=== PATIENT | male | born 1960 | race Caucasian/White ===

== ENCOUNTER → 2017-12-17 | Outpatient (CLI) | payer OTHER ==
--- NOTE | ~2017-12-17 | HM ---
[place], [place] HOLTER MONITOR REPORT NAME: HELDER ROUSE UNIT #: [id number] ROOM: DOCTOR: IVAN MA MD BIRTHDATE: [birth year] DOS: 12/18/2017 FINDINGS: The patient remained in sinus rhythm throughout the entire period. Minimum heart rate 51, maximum heart rate 118, average heart rate 74. As mentioned, the patient is in sinus rhythm throughout the entire period. No significant bradycardic or tachycardic episodes. No significant PVCs or PACs are present. No significant pauses. FINAL IMPRESSION: Grossly normal Holter monitor without any evidence of significant cardiac dysrhythmia. IVAN MA MD CM:HOLTER:HOLTER MONITOR REPORT [id number] IVAN MA MD
== END | disposition home or self-care (01) ==
LOC: CARD 09:07
DX: R00.1 Bradycardia, unspecified (principal)

== ENCOUNTER → 2018-03-04 | Outpatient (CLI) | payer OTHER | END | disposition home or self-care (01) | LOC: MRI 08:16 | DX: R41.3 Other amnesia (principal); Z87.828 Personal history of other (healed) physical injury and trauma ==

== ENCOUNTER 2019-12-13 08:32 | Emergency (ER) | payer OTHER ==
[~2019-12-13] VITALS: Ht 182.8 cm; Wt 124.7 kg
[2019-12-13 08:39] VITALS: BP 165/96
[2019-12-13] MEDS ORDERED: Motrin,Rufen800 MG PO (11:10)
== END 2019-12-13 11:28 | disposition home or self-care (01) ==
LOC: ED 08:32
DX: S49.92XA Unspecified injury of left shoulder and upper arm, initial encounter (principal); M54.2 Cervicalgia; W11.XXXA Fall on and from ladder, initial encounter; Y93.89 Activity, other specified; Y92.89 Other specified places as the place of occurrence of the external cause; Y99.0 Civilian activity done for income or pay

== ENCOUNTER → 2020-03-28 | Outpatient (CLI) | payer BC ==
[~2020-03-28] MED LIST: Motrin,Rufen800 MG PO
[2020-03-28 10:23] LABS: BASO # 0.1 10*3/uL (0.0-0.1); BASO % 1.2 % (0.0-1.0); EOS # 0.3 10*3/uL (0.0-0.4); EOS % 4.8 % (1.0-4.0); HEMATOCRIT 43.1 % (42.0-52.0); LYMPH # 2.4 10*3/uL (1.3-4.4); LYMPH % 34.4 % (27.0-41.0); MEAN CELL VOLUME 93.1 fl (80.0-94.0); MEAN CORPUSCULAR HGB CONC 32.3 g/dl (33.0-37.0); MEAN PLATELET VOLUME 10.2 fl (9.6-12.3); MONO # 0.6 10*3/uL (0.1-1.0); MONO % 8.7 % (3.0-9.0); NEUT # 3.5 10*3/uL (2.3-7.9); NEUT % 50.6 % (47.0-73.0); PLATELET COUNT AUTOMATED 231 10*3/uL (130-400); RED BLOOD COUNT 4.63 10*6/uL (4.50-5.90); RED CELL DISTRI WIDTH 13.2 % (0-14.5); RETICULOCYTE % 1.35 % (0.50-2.50); WHITE BLOOD COUNT 6.9 10*3/uL (4.8-10.8)
[2020-03-28 10:26] LABS: BILIRUBIN Negative (Negative); BLOOD Negative (Negative); CLARITY Clear (Clear); COLOR Yellow (Yellow); GLUCOSE Negative (Negative); KETONE Negative (Negative); LEUKO ESTERASE Trace (Negative); NITRITE Negative (Negative); SPECIFIC GRAVITY 1.015 (1.001-1.030); UROBILINOGEN 0.2 E.U./dl (0.0-1.0)
[2020-03-28 10:56] LABS: ALBUMIN 3.7 gm/dl (3.1-4.5); ALKALINE PHOSPHATASE 97 U/L (45-117); BUN 12 mg/dl (7-24); CHLORIDE 109 mmol/L (98-107); CHOLESTEROL 201 mg/dL (<200); CPK 134 U/L (39-308); CREATININE 0.99 mg/dL (0.70-1.30); GAMMA GLUTAMYL TRANSPEPTIDASE 67 U/L (15-85); HDL CHOLESTEROL 53 mg/dl (40-60); IRON 83 ug/dL (65-175); LDL CHOLESTEROL 110 mg/dL (9-159); POTASSIUM 4.2 mmol/L (3.5-5.1); SGOT/AST 23 IU/L (3-35); SGPT/ALT 37 U/L (12-78); SODIUM 142 mmol/L (136-145); THYROXINE (T4) TOTAL 7.6 ug/dl (4.5-12.1); TOTAL IRON BINDING CAPACITY 296 ug/dl (250-450); TOTAL PROTEIN 7.4 gm/dL (6.4-8.2); TRIGLYCERIDES 189 mg/dl (<150); VLDL CHOLESTEROL 38 mg/dL (6-40)
[2020-03-28 11:03] LABS: T3 UPTAKE 33 % (31-39)
[2020-03-28 11:03] LABS: BACTERIA TRACE
[2020-03-28 11:40] LABS: FERRITIN 167.5 ng/mL (22.0-322.0); VITAMIN D, 25-HYDROXY 32.2 ng/mL (30-100)
== END | disposition home or self-care (01) ==
LOC: US 03-24 13:00 → LAB 09:54 → US 11:00
PROVIDERS: ATTEND Family Medicine
DX: E03.9 Hypothyroidism, unspecified (principal); E55.9 Vitamin D deficiency, unspecified; R53.83 Other fatigue; E78.5 Hyperlipidemia, unspecified; R74.8 Abnormal levels of other serum enzymes; R79.89 Other specified abnormal findings of blood chemistry

== ENCOUNTER → 2020-08-09 | Outpatient (CLI) | payer BC ==
[~2020-08-09] MED LIST changes: +ATORVASTATIN CA20 M1 PO; +GABAPENTIN600 MG PO; +LEVOTHYROXINE50 MCG PO; +LISINOPRIL40 MG PO; +PREDNISONE10 MG PO
[2020-08-09 13:06] LABS: CREATININE 1.01 mg/dL (0.70-1.30)
== END | disposition home or self-care (01) ==
LOC: LAB 12:27
PROVIDERS: ATTEND Surgery
DX: R10.9 Unspecified abdominal pain (principal)

== ENCOUNTER → 2020-08-16 | Outpatient (CLI) | payer BC ==
[2020-08-30] VITALS (7 sets, daily range): BP systolic 121–134; BP diastolic 70–81
== END | disposition home or self-care (01) ==
LOC: CT 07:41
PROVIDERS: ATTEND Surgery
DX: K40.90 Unilateral inguinal hernia, without obstruction or gangrene, not specified as recurrent (principal); R59.0 Localized enlarged lymph nodes; K76.0 Fatty (change of) liver, not elsewhere classified; M51.34 Other intervertebral disc degeneration, thoracic region; M51.36 Other intervertebral disc degeneration, lumbar region

== ENCOUNTER → 2020-08-30 | Outpatient (CLI) | payer BC ==
[2020-08-30 09:24] VITALS: BP 149/71
[2020-08-30 09:28] LABS: ACT PARTIAL THROMBO TIME 24.4 SECONDS (20.0-32.1); INTERNATIONAL NORM RATIO 0.9 (2.0-3.5)
[2020-09-02 14:07] LABS: ACID FAST SPEC PROCESSING Tissue Grinding (.)
== END | disposition home or self-care (01) ==
LOC: CT 00:11 → LAB 00:11 → CT 10:00
PROVIDERS: Radiology Diagnostic Radiology; ATTEND Surgery
DX: R59.0 Localized enlarged lymph nodes (principal); R10.9 Unspecified abdominal pain; I10 Essential (primary) hypertension; E03.9 Hypothyroidism, unspecified; Z79.899 Other long term (current) drug therapy

== ENCOUNTER → 2020-09-29 | Outpatient (CLI) | payer BC | END | disposition home or self-care (01) | LOC: COVID19 08:10 | PROVIDERS: ATTEND Surgery | DX: Z01.812 Encounter for preprocedural laboratory examination (principal); Z20.822 Contact with and (suspected) exposure to COVID-19 ==

== ENCOUNTER → 2020-10-02 | Day surgery (SDC) | payer BC ==
[~2020-10-02] VITALS: Ht 182.8 cm; Wt 117.9 kg
[2020-10-02 06:58] VITALS: BP 156/76
[2020-10-02 07:50] VITALS: BP 111/57
[2020-10-02 08:05] VITALS: BP 135/82
[2020-10-02 08:17] VITALS: BP 141/71
== END | disposition home or self-care (01) ==
LOC: SDC 09-28 08:45
PROVIDERS: ATTEND Surgery
DX: R10.9 Unspecified abdominal pain (principal); R59.0 Localized enlarged lymph nodes; I10 Essential (primary) hypertension; E03.9 Hypothyroidism, unspecified; E78.00 Pure hypercholesterolemia, unspecified

== ENCOUNTER → 2021-01-03 | Outpatient (CLI) | payer BC ==
[~2021-01-03] MED LIST changes: +PERCOCET 5-3251 EACH PO
== END | disposition home or self-care (01) ==
LOC: CARD 10:13
PROVIDERS: ATTEND Internal Medicine Hematology & Oncology
DX: I36.1 Nonrheumatic tricuspid (valve) insufficiency (principal); I51.7 Cardiomegaly; C81.03 Nodular lymphocyte predominant Hodgkin lymphoma, intra-abdominal lymph nodes

== ENCOUNTER → 2021-05-09 | Outpatient (CLI) | payer BC | END | disposition home or self-care (01) | LOC: CARD 07:04 | PROVIDERS: ATTEND Nurse Practitioner Adult Health | DX: C81.03 Nodular lymphocyte predominant Hodgkin lymphoma, intra-abdominal lymph nodes (principal); Z79.899 Other long term (current) drug therapy ==

== ENCOUNTER → 2021-05-22 | Outpatient (CLI) | payer BC | END | disposition home or self-care (01) | LOC: COVID19 17:05 | PROVIDERS: ATTEND Internal Medicine | DX: U07.1 COVID-19 (principal) ==

== ENCOUNTER 2021-06-06 14:15 | Inpatient (IN) | payer BC ==
[~2021-06-06] VITALS: Ht 182.9 cm; Wt 109.8 kg
[2021-06-06 14:28] VITALS: BP 115/70
[2021-06-06 19:01] VITALS: BP 115/70
[2021-06-06 20:22] VITALS: BP 158/87
[2021-06-07] VITALS: BP 132/82
[2021-06-07 06:14] LABS: ALBUMIN 2.5 gm/dl (3.1-4.5); ALKALINE PHOSPHATASE 85 U/L (45-117); BUN 15 mg/dl (7-24); CHLORIDE 103 mmol/L (98-107); CHOLESTEROL 176 mg/dL (<200); CREATININE 1.01 mg/dL (0.70-1.30); FREE T4 1.23 ng/dl (0.76-1.46); LDL CHOLESTEROL 95 mg/dL (9-159); POTASSIUM 3.6 mmol/L (3.5-5.1); SGOT/AST 31 IU/L (3-35); SGPT/ALT 52 U/L (12-78); SODIUM 134 mmol/L (136-145); TOTAL PROTEIN 7.1 gm/dL (6.4-8.2); TRIGLYCERIDES 185 mg/dl (<150)
[2021-06-07 06:30] LABS: HEMATOCRIT 38.1 % (42.0-52.0); MEAN CELL VOLUME 91.1 fl (80.0-94.0); MEAN CORPUSCULAR HGB 29.7 pg (27.0-31.0); MEAN CORPUSCULAR HGB CONC 32.5 g/dl (33.0-37.0); MEAN PLATELET VOLUME 9.9 fl (9.6-12.3); PLATELET COUNT AUTOMATED 312 10*3/uL (130-400); RED BLOOD COUNT 4.18 10*6/uL (4.50-5.90); RED CELL DISTRI WIDTH 14.9 % (0-14.5); WHITE BLOOD COUNT 7.5 10*3/uL (4.8-10.8)
[2021-06-07 06:43] LABS: ACT PARTIAL THROMBO TIME 23.8 SECONDS (20.0-32.1)
[2021-06-07 07:38] LABS: BASOPHILS 1 % (0-1); PLATELET SUFFICIENCY NORMAL (NORMAL); TOTAL CELLS COUNTED 100 #CELLS
[2021-06-07 07:40] LABS: FERRITIN 675.5 ng/mL (22.0-322.0); VITAMIN D, 25-HYDROXY 27.4 ng/mL (30-100)
[2021-06-07 08:00] VITALS: BP 126/73
[2021-06-07 12:00] VITALS: BP 113/68
[2021-06-07 16:00] VITALS: BP 117/69
[2021-06-07 20:00] VITALS: BP 119/67
[2021-06-08] VITALS: BP 125/69
[2021-06-08 08:00] VITALS: BP 101/60
[2021-06-08 12:00] VITALS: BP 124/75
[2021-06-08 15:21] LABS: CSF RBC 1000 /uL
[2021-06-08 15:42] LABS: CSF GLUCOSE 50 mg/dL (40-70); CSF TOTAL PROTEIN 64.2 mg/dL (15-45)
[2021-06-08 16:00] VITALS: BP 103/57
[2021-06-08 16:23] LABS: CSF WBC 660 /uL
[2021-06-08 16:30] LABS: CLARITY CLEAR; COLOR COLORLESS; CSF LYMPHOCYTES 54 % (40-80); CSF MONOCYTES 39 % (15-45)
[2021-06-08 21:11] VITALS: BP 106/55
== END 2021-06-08 21:22 | disposition short-term general hospital (02) | DRG 177 ==
LOC: ED 14:15 → EDHOLD 18:29 → 4E 18:29
PROVIDERS: Internal Medicine; ADMIT Student in an Organized Health Care Education/Training Program; ATTEND Student in an Organized Health Care Education/Training Program
PROC: XW033E5 Introduction of Remdesivir Anti-infective into Peripheral Vein, Percutaneous Approach, New Technology Group 5 (ICD-10-PCS; principal; 2021-06-07)
PROC: 009U3ZZ Drainage of Spinal Canal, Percutaneous Approach (ICD-10-PCS; 2021-06-08)
DX: U07.1 COVID-19 (principal); J12.82 Pneumonia due to coronavirus disease 2019; E44.1 Mild protein-calorie malnutrition; C85.90 Non-Hodgkin lymphoma, unspecified, unspecified site; R33.9 Retention of urine, unspecified; D64.9 Anemia, unspecified; R74.01 Elevation of levels of liver transaminase levels; I10 Essential (primary) hypertension; E78.5 Hyperlipidemia, unspecified; E03.9 Hypothyroidism, unspecified; Z82.49 Family history of ischemic heart disease and other diseases of the circulatory system; Z79.899 Other long term (current) drug therapy; Z68.32 Body mass index [BMI] 32.0-32.9, adult

== ENCOUNTER → 2021-06-06 | Outpatient (CLI) | payer BC ==
[2021-06-06 12:14] LABS: HEMATOCRIT 40.4 % (42.0-52.0); MEAN CELL VOLUME 90.8 fl (80.0-94.0); MEAN CORPUSCULAR HGB 30.1 pg (27.0-31.0); MEAN CORPUSCULAR HGB CONC 33.2 g/dl (33.0-37.0); MEAN PLATELET VOLUME 10.1 fl (9.6-12.3); PLATELET COUNT AUTOMATED 318 10*3/uL (130-400); RED BLOOD COUNT 4.45 10*6/uL (4.50-5.90); RED CELL DISTRI WIDTH 14.5 % (0-14.5); RETICULOCYTE % 1.09 % (0.50-2.50)
[2021-06-06 12:23] LABS: BILIRUBIN Negative (Negative); BLOOD Negative (Negative); CLARITY Clear (Clear); COLOR Yellow (Yellow); GLUCOSE Negative (Negative); KETONE Negative (Negative); LEUKO ESTERASE Negative (Negative); NITRITE Negative (Negative); PH 5.5 (4.5-8.0); SPECIFIC GRAVITY 1.015 (1.001-1.030); UROBILINOGEN 0.2 E.U./dl (0.0-1.0)
[2021-06-06 12:37] LABS: MUCOUS TRACE
[2021-06-06 12:42] LABS: ATYPICAL LYMPHS 2 % (0-0); BASOPHILS 5 % (0-1); TOTAL CELLS COUNTED 100 #CELLS
[2021-06-06 12:43] LABS: BURR CELLS FEW; PLATELET SUFFICIENCY NORMAL (NORMAL); POLYCHROMASIA SLIGHT; SCHISTOCYTES FEW
[2021-06-06 12:45] LABS: ALBUMIN 2.8 gm/dl (3.1-4.5); ALKALINE PHOSPHATASE 97 U/L (45-117); BUN 22 mg/dl (7-24); CHLORIDE 105 mmol/L (98-107); CHOLESTEROL 187 mg/dL (<200); GAMMA GLUTAMYL TRANSPEPTIDASE 184 U/L (15-85); IRON 45 ug/dL (65-175); LDL CHOLESTEROL 92 mg/dL (9-159); POTASSIUM 4.1 mmol/L (3.5-5.1); SGOT/AST 38 IU/L (3-35); SGPT/ALT 66 U/L (12-78); SODIUM 138 mmol/L (136-145); TOTAL IRON BINDING CAPACITY 196 ug/dl (250-450); TOTAL PROTEIN 7.7 gm/dL (6.4-8.2); TRIGLYCERIDES 199 mg/dl (<150)
== END | disposition home or self-care (01) ==
LOC: LAB 11:52
PROVIDERS: ATTEND Family Medicine
DX: R07.9 Chest pain, unspecified (principal); E55.9 Vitamin D deficiency, unspecified; R53.83 Other fatigue; R79.89 Other specified abnormal findings of blood chemistry

== ENCOUNTER → 2021-07-23 | Outpatient (CLI) | payer BC | END | disposition home or self-care (01) | LOC: LAB 09:39 | PROVIDERS: ATTEND Family Medicine | DX: R79.89 Other specified abnormal findings of blood chemistry (principal); R53.83 Other fatigue; E55.9 Vitamin D deficiency, unspecified ==

== ENCOUNTER → 2022-01-07 | Day surgery (SDC) | payer BC ==
[~2022-01-07] VITALS: Ht 182.8 cm; Wt 120.2 kg
[~2022-01-07] MED LIST changes: +CYMBALTA20 M1 PO; +LYRICA50 M1 PO
[2022-01-07 09:04] VITALS: BP 158/62
[2022-01-07 10:07] VITALS: BP 129/77
[2022-01-07 10:22] VITALS: BP 150/94
[2022-01-07 10:37] VITALS: BP 153/89
== END | disposition home or self-care (01) ==
LOC: SDC 01-03 13:15
PROVIDERS: ATTEND Surgery
DX: T85.698A Other mechanical complication of other specified internal prosthetic devices, implants and grafts, initial encounter (principal); I10 Essential (primary) hypertension; E78.00 Pure hypercholesterolemia, unspecified; E03.9 Hypothyroidism, unspecified; Z79.899 Other long term (current) drug therapy; Y83.8 Other surgical procedures as the cause of abnormal reaction of the patient, or of later complication, without mention of misadventure at the time of the procedure

== ENCOUNTER → 2023-12-23 | Outpatient (CLI) | payer OTHER ==
[~2023-12-23] MED LIST changes: +Albuterol Sulfate 2.5 MG/3 ML VIAL NEB ONE
== END | disposition home or self-care (01) ==
LOC: CP 11:19
PROVIDERS: ATTEND Student in an Organized Health Care Education/Training Program
DX: R06.00 Dyspnea, unspecified (principal)

== ENCOUNTER 2024-12-12 14:06 | Observation (INO) | payer OTHER ==
[~2024-12-12] VITALS: Ht 182.8 cm; Wt 125.8 kg
[2024-12-12 14:06] VITALS: BP 192/88
[~2024-12-12 14:06] MED LIST changes: -Albuterol Sulfate 2.5 MG/3 ML VIAL NEB ONE
[2024-12-12 14:46] LABS: BASO # 0.1 10*3/uL (0.0-0.1); BASO % 1.2 % (0.0-1.0); EOS # 0.5 10*3/uL (0.0-0.4); EOS % 6.2 % (1.0-4.0); MEAN CELL VOLUME 95.9 fl (80.0-94.0); MEAN CORPUSCULAR HGB 31.9 pg (27.0-31.0); MEAN PLATELET VOLUME 9.7 fl (9.6-12.3); MONO # 0.7 10*3/uL (0.1-1.0); MONO % 8.7 % (3.0-9.0); NEUT # 3.3 10*3/uL (2.3-7.9); NEUT % 44.1 % (47.0-73.0); NUCLEATED RED BLOOD CELL 0.0 % (0.0-0.0); NUCLEATED RED BLOOD CELL 0.0 10*3/uL (0.0-0.0); PLATELET COUNT AUTOMATED 219 10*3/uL (130-400); RED CELL DISTRI WIDTH 12.6 % (0-14.5)
[2024-12-12 14:58] LABS: ACT PARTIAL THROMBO TIME 24.8 SECONDS (20.0-32.1)
[2024-12-12 15:07] LABS: BUN 9 mg/dl (9-23)
[2024-12-12 15:19] VITALS: BP 150/87
[2024-12-12 16:44] VITALS: BP 147/79
[2024-12-12 17:59] VITALS: BP 166/69
[2024-12-12] MEDS ORDERED: BISACODYL 5 MG TAB PO PRN (18:20)
[2024-12-12] MEDS ORDERED: ACETAMINOPHEN 650 MG SUPP R PRN (18:20)
[2024-12-12] MEDS ORDERED: Ondansetron Hydrochloride 4 MG/2 ML VIAL IV PRN (18:20)
[2024-12-12] MEDS ORDERED: TEMAZEPAM 15 MG CAP PO PRN (18:20)
[2024-12-12] MEDS ORDERED: ACETAMINOPHEN 325 MG TAB PO PRN (18:20)
[2024-12-12] MEDS ORDERED: BISACODYL 10 MG SUPP R PRN (18:20)
[2024-12-12] MEDS ORDERED: NEURONTIN300 MG PO (18:38)
[2024-12-12] MEDS ORDERED: CARBAMAZEPINE200 MG PO (18:40)
[2024-12-12] MEDS ORDERED: ALLOPURINOL300 MG PO (18:40)
[2024-12-12] MEDS ORDERED: HYDROXYZINE HCL25 MG PO (18:41)
[2024-12-12] MEDS ORDERED: GABAPENTIN 300 MG CAP PO SCH (20:00)
[2024-12-12 20:07] VITALS: BP 166/74
[2024-12-12 20:17] VITALS: BP 171/72
[2024-12-12] MEDS ORDERED: carBAMazepine 200 MG TAB PO SCH (22:00)
[2024-12-13] VITALS: BP 140/79
[2024-12-13 05:37] LABS: BUN 11 mg/dl (9-23); FREE T4 0.89 ng/dl (0.89-1.76); LDL CHOLESTEROL 181 mg/dL (9-159); SGPT/ALT 40 U/L (5-49)
[2024-12-13 06:06] LABS: VITAMIN D, 25-HYDROXY 35.1 ng/mL (30-100)
[2024-12-13 06:25] LABS: BASO # 0.1 10*3/uL (0.0-0.1); BASO % 0.7 % (0.0-1.0); EOS # 0.4 10*3/uL (0.0-0.4); EOS % 4.7 % (1.0-4.0); MEAN CELL VOLUME 98.2 fl (80.0-94.0); MEAN CORPUSCULAR HGB 31.9 pg (27.0-31.0); MEAN PLATELET VOLUME 10.1 fl (9.6-12.3); MONO # 0.7 10*3/uL (0.1-1.0); MONO % 8.1 % (3.0-9.0); NEUT # 4.3 10*3/uL (2.3-7.9); NEUT % 54.3 % (47.0-73.0); NUCLEATED RED BLOOD CELL 0.0 % (0.0-0.0); NUCLEATED RED BLOOD CELL 0.0 10*3/uL (0.0-0.0); PLATELET COUNT AUTOMATED 223 10*3/uL (130-400); RED CELL DISTRI WIDTH 12.8 % (0-14.5)
[2024-12-13 08:00] VITALS: BP 165/83
[2024-12-13] MEDS ORDERED: ALLOPURINOL 300 MG TAB PO SCH (10:00)
[2024-12-13] MEDS ORDERED: LISINOPRIL 5 MG TAB PO SCH (10:00)
[2024-12-13 12:00] VITALS: BP 151/75
[2024-12-13] MEDS ORDERED: ATORVASTATIN CALCIUM 20 MG TAB PO SCH (12:10)
[2024-12-13] MEDS ORDERED: LISINOPRIL10 M1 PO (13:06)
[2024-12-13] MEDS ORDERED: ATORVASTATIN CA20 M1 PO (13:06)
[2024-12-13] MEDS ORDERED: NEURONTIN300 MG PO (13:07)
== END 2024-12-13 14:20 | disposition home or self-care (01) ==
LOC: ED 14:06 → EDHOLD 18:08 → 5E 19:00
PROVIDERS: Internal Medicine; ADMIT Student in an Organized Health Care Education/Training Program; ATTEND Student in an Organized Health Care Education/Training Program
DX: I16.0 Hypertensive urgency (principal); R07.89 Other chest pain; F41.9 Anxiety disorder, unspecified; T42.6X5A Adverse effect of other antiepileptic and sedative-hypnotic drugs, initial encounter; R00.1 Bradycardia, unspecified; E78.5 Hyperlipidemia, unspecified; E03.9 Hypothyroidism, unspecified; I10 Essential (primary) hypertension; G62.9 Polyneuropathy, unspecified; Z79.899 Other long term (current) drug therapy